=== PATIENT | male | born 1945 | race Caucasian/White ===

== ENCOUNTER → 2018-06-10 | Outpatient (CLI) | payer MEDICARE | LOC: RAD 08:43 | DX: D35.01 Benign neoplasm of right adrenal gland (principal); E27.9 Disorder of adrenal gland, unspecified | CPT/HCPCS: Q9967 ==

== ENCOUNTER → 2019-03-25 | Outpatient (CLI) | payer MEDICARE | LOC: LAB 10:39 | DX: R97.20 Elevated prostate specific antigen [PSA] (principal) ==

== ENCOUNTER → 2019-11-20 | Outpatient (CLI) | payer MEDICARE | LOC: LAB 10:11 | DX: C61 Malignant neoplasm of prostate (principal) ==

== ENCOUNTER → 2019-12-04 | Outpatient (CLI) | payer MEDICARE ==
[2019-12-04 14:28] LABS: CALCIUM 8.6 mg/dL (8.3-10.5)
== END ==
LOC: LAB 13:49
PROVIDERS: Urology
DX: C61 Malignant neoplasm of prostate (principal)

== ENCOUNTER → 2020-07-02 | Outpatient (CLI) | payer MEDICARE | LOC: VAS 10:01 | DX: M79.89 Other specified soft tissue disorders (principal) ==

== ENCOUNTER → 2020-07-23 | Outpatient (CLI) | payer MEDICARE | LOC: LAB 09:38 | DX: C61 Malignant neoplasm of prostate (principal) ==

== ENCOUNTER → 2020-11-09 | Outpatient (CLI) | payer MEDICARE | LOC: LAB 10:03 | DX: C61 Malignant neoplasm of prostate (principal) ==

== ENCOUNTER → 2021-05-03 | Outpatient (CLI) | payer MEDICARE | LOC: LAB 10:55 | DX: Z85.46 Personal history of malignant neoplasm of prostate (principal) ==

== ENCOUNTER 2021-06-20 14:30 | Outpatient (RCR) | payer MEDICARE | END 2021-07-07 | disposition home or self-care (01) | LOC: PT | DX: M16.11 Unilateral primary osteoarthritis, right hip (principal); Z96.641 Presence of right artificial hip joint ==

== ENCOUNTER 2021-07-09 22:11 | Emergency (ER) | payer MEDICARE ==
[~2021-07-09] VITALS: Ht 172.7 cm; Wt 95.1 kg
[2021-07-09] MEDS ORDERED: TOPCARE ASPIRIN81 M1 PO (22:31)
[2021-07-09] MEDS ORDERED: LASIX20 M1 PO (22:31)
[2021-07-09] MEDS ORDERED: NORCO 325 MG-51 TA1 PO (22:32)
[2021-07-09] MEDS ORDERED: PRILOSEC OTC20 MG PO (22:33)
[2021-07-09] MEDS ORDERED: PRAVASTATIN SOD20 MG PO (22:34)
[2021-07-09 23:10] LABS: BASO # 0.04 K/mm3 (0.02-0.10); EOS # 0.16 K/mm3 (0.04-0.40); EOS % 2.3 % (0.0-4.0); HEMATOCRIT 40.2 % (42.0-52.0); HEMOGLOBIN 13.1 g/dL (13.5-18.0); LYMPH# 0.68 K/mm3 (1.50-4.00); MEAN CELL VOLUME 91 fl (78-100); MEAN CORPUSCULAR HEMOGLOBIN 30 pg (27-31); MEAN CORPUSCULAR HGB CONC 33 g/dL (33-37); MEAN PLATELET VOLUME 9.4 fl (7.4-10.4); MONO # 0.55 K/mm3 (0.20-0.80); NEU # 5.53 K/mm3 (1.40-6.50); PLATELET COUNT 289 K/mm3 (130-400); RED BLOOD COUNT 4.41 M/mm3 (4.20-5.60); RED CELL DISTRIBUTION WIDTH 13.9 % (11.5-14.5)
[2021-07-09 23:16] LABS: ALBUMIN 4.2 g/dL (3.4-4.8)
[2021-07-09 23:17] LABS: CALCIUM 9.3 mg/dL (8.3-10.5)
[2021-07-09 23:18] LABS: TOTAL PROTEIN 7.4 g/dL (6.2-8.1)
[2021-07-09 23:20] LABS: TOTAL BILIRUBIN 0.8 mg/dL (0.2-1.2)
[2021-07-09 23:55] LABS: URINE COLOR DK YELLOW
[2021-07-10 00:08] LABS: URINE APPEARANCE HAZY; URINE BILIRUBIN NEGATIVE (NEGATIVE); URINE BLOOD NEGATIVE (NEGATIVE); URINE GLUCOSE NEGATIVE (NEGATIVE); URINE KETONE NEGATIVE (NEGATIVE); URINE LEUKOCYTE ESTERASE NEGATIVE (NEGATIVE); URINE NITRATE NEGATIVE (NEGATIVE); URINE PROTEIN(semi-quant) 1+ (NEGATIVE); URINE UROBILINOGEN NORMAL (NORMAL)
[2021-07-10 00:09] LABS: URINE MUCUS PRESENT (NOT PRESENT)
[2021-07-10 00:51] VITALS: BP 139/80
== END 2021-07-10 00:52 | disposition home or self-care (01) ==
LOC: ED 22:11
PROVIDERS: Family Medicine
DX: I95.1 Orthostatic hypotension (principal); R60.0 Localized edema; Z96.641 Presence of right artificial hip joint

== ENCOUNTER 2021-07-11 11:21 | Outpatient (RCR) | payer MEDICARE | END 2021-08-06 | disposition home or self-care (01) | LOC: PT | DX: M16.11 Unilateral primary osteoarthritis, right hip (principal); Z96.641 Presence of right artificial hip joint ==

== ENCOUNTER → 2021-07-11 | Outpatient (CLI) | payer MEDICARE ==
[~2021-07-11] MED LIST: LASIX20 M1 PO; NORCO 325 MG-51 TA1 PO; PRAVASTATIN SOD20 MG PO; PRILOSEC OTC20 MG PO; TOPCARE ASPIRIN81 M1 PO
== END ==
LOC: VAS 13:21 → RAD 13:21
DX: R60.9 Edema, unspecified (principal); Z96.641 Presence of right artificial hip joint

== ENCOUNTER → 2021-10-14 | Outpatient (CLI) | payer MEDICARE | LOC: LAB 11:17 | DX: Z85.46 Personal history of malignant neoplasm of prostate (principal) ==